=== PATIENT | female | born 1975 | race African-American/Black ===

== ENCOUNTER 2024-08-08 02:31 | Emergency (ER) | payer OTHER, SELFPAY | END 2024-08-08 03:07 | disposition home or self-care (01) | LOC: CSHERS 02:31 | DX: S03.2XXA Dislocation of tooth, initial encounter (principal); K02.9 Dental caries, unspecified; K04.7 Periapical abscess without sinus; F17.210 Nicotine dependence, cigarettes, uncomplicated; X58.XXXA Exposure to other specified factors, initial encounter | CPT/HCPCS: 99282 ==